=== PATIENT | female | born 1960 | race Caucasian/White ===

== ENCOUNTER 2018-06-22 17:23 | Inpatient (IN) | payer MEDICAID ==
[2018-06-21 21:20] VITALS: BP 168/58
[~2018-06-22] VITALS: Ht 160 cm; Wt 69.4 kg
[~2018-06-22 17:23] MED LIST: ASPI-611; BUSP5TAB3 PO; METF500T PO; MULT-1179 PO; RANI-320 PO
[2018-06-22] MEDS ORDERED: normal saline 1000ML IV soln IVB ONE (17:40)
[2018-06-22 17:42] LABS: BASOPHILS % (AUTO) 0.3 % (0-1); EOSINOPHILS % (AUTO) 0.7 % (0-6); HEMATOCRIT 43.1 % (35.0-45.0); HEMOGLOBIN 14.7 g/dl (12.0-16.0); LYMPHOCYTES # (AUTO) 1.3 X10'3 (1.1-4.8); LYMPHOCYTES % (AUTO) 19.7 % (21-51); MEAN CORPUSCULAR HEMOGLOBIN 30.1 PG (27.0-31.0); MEAN CORPUSCULAR VOLUME 88.5 FL (78-98); MEAN PLATELET VOLUME 9.8 FL (7.4-10.4); MONOCYTES # (AUTO) 0.4 X10'3 (0-0.9); MONOCYTES % (AUTO) 6.4 % (2-12); NEUTROPHILS # (AUTO) 4.7 X10'3 (1.8-7.7); NEUTROPHILS % (AUTO) 72.9 % (42-75); PLATELET COUNT 206 X10'3 (140-440); RED BLOOD COUNT 4.87 X10'6 (4.20-5.60); RED CELL DISTRIBUTION WIDTH 12.6 % (11.5-14.5); WHITE BLOOD COUNT 6.5 X10'3 (4.5-11.0)
[2018-06-22 17:52] LABS: INR 1.1 INR; PARTIAL THROMBOPLASTIN TIME 25 SECONDS (22-32)
[2018-06-22 18:01] LABS: ALANINE AMINOTRANSFERASE 37 U/L (12-78); ALBUMIN 2.8 G/DL (3.4-5.0); ALBUMIN/GLOBULIN RATIO 0.6 (1.1-1.5); ALKALINE PHOSPHATASE 81 IU/L (46-116); ANION GAP 6 (8-16); ASPARTATE AMINO TRANSFERASE 24 U/L (10-37); BILIRUBIN,TOTAL 0.5 MG/DL (0.1-1.0); BLOOD UREA NITROGEN 14 MG/DL (7-18); BUN/CREATININE RATIO 15.4 (6.6-38.0); CALCIUM 8.8 MG/DL (8.5-10.1); CHLORIDE 100 MMOL/L (99-107); CREATININE 0.91 MG/DL (0.40-0.90); ETHANOL < 0.010 GM/DL (0.0-0.010); POTASSIUM 4.2 MMOL/L (3.5-5.1); SODIUM 135 MMOL/L (135-145); TOTAL CARBON DIOXIDE 29.3 MMOL/L (24-32); TOTAL PROTEIN 7.2 G/DL (6.4-8.2); TROPONIN I 0.07 NG/ML (0.0-0.05); eGFR 64 ML/MIN
[2018-06-22 18:02] LABS: ACETAMINOPHEN < 2.0 UG/ML (10-30)
[2018-06-22 18:04] LABS: GLUCOSE 501 MG/DL (70-104)
[2018-06-22] MEDS ORDERED: insulin Lispro (HumaLOG) vial - multi-dose SQ STA (18:05)
[2018-06-22] MEDS ORDERED: aspirin 325mg tablet PO ONE (19:55)
[2018-06-22] MEDS ORDERED: ondansetron/PF 4mg/2ml inj IV PRN (20:05)
[2018-06-22] MEDS ORDERED: magnesium hydroxide 30ml (MOM) UD suspension PO PRN (20:05)
[2018-06-22] MEDS ORDERED: acetaminophen 325mg tablet PO PRN ×2 (20:05)
[2018-06-22] MEDS ORDERED: mag hydrox/Alum hydrox/simeth 30ml oral suspension PO PRN (20:05)
[2018-06-22] MEDS ORDERED: glucagon, human recombinant 1mg kit SUBCUT PRN (20:10)
[2018-06-22] MEDS ORDERED: dextrose 50%-water 50ml dispensing syringe IV PRN ×2 (20:10)
[2018-06-22] MEDS ORDERED: MESSAGE TO PHARMACY PO ONE (20:10)
[2018-06-22] MEDS ORDERED: dextrose ORAL solution 15 GM/59 ML bottle PO PRN ×2 (20:10)
[2018-06-22 20:19] LABS: MAGNESIUM 1.6 MG/DL (1.5-2.4)
[2018-06-22 20:28] LABS: ALBUMIN 2.6 G/DL (3.4-5.0); ANION GAP 6 (8-16); BLOOD UREA NITROGEN 13 MG/DL (7-18); BUN/CREATININE RATIO 15.3 (6.6-38.0); CALCIUM 8.8 MG/DL (8.5-10.1); CHLORIDE 104 MMOL/L (99-107); CREATININE 0.85 MG/DL (0.40-0.90); GLUCOSE 309 MG/DL (70-104); POTASSIUM 3.9 MMOL/L (3.5-5.1); SODIUM 140 MMOL/L (135-145); TOTAL CARBON DIOXIDE 29.7 MMOL/L (24-32); eGFR 69 ML/MIN
[2018-06-22] MEDS: magnesium 1gm/100ml D5W IVPB 100 ML IV SCH ×2 (22:15→23:23)
[2018-06-22] MEDS ORDERED: insulin glargine (Lantus) pen - multi-dose SQ ONE (22:19)
[2018-06-22] MEDS ORDERED: insulin Lispro (HumaLOG) vial - multi-dose SQ ONE (22:20)
[2018-06-22 22:30] VITALS: BP 152/52
[2018-06-22] MEDS: insulin glargine (Lantus) pen - multi-dose SQ SCH (22:42)
[2018-06-23] VITALS (7 sets, daily range): BP systolic 155–241; BP diastolic 45–65
[2018-06-23 05:56] LABS: BASOPHILS % (AUTO) 0.4 % (0-1); EOSINOPHILS # (AUTO) 0.1 X10'3 (0-0.9); EOSINOPHILS % (AUTO) 1.2 % (0-6); HEMATOCRIT 41.6 % (35.0-45.0); HEMOGLOBIN 14.4 g/dl (12.0-16.0); LYMPHOCYTES # (AUTO) 1.4 X10'3 (1.1-4.8); LYMPHOCYTES % (AUTO) 21.9 % (21-51); MEAN CORPUSCULAR HEMOGLOBIN 30.3 PG (27.0-31.0); MEAN CORPUSCULAR HGB CONC 34.5 % (33.0-36.5); MEAN PLATELET VOLUME 10.1 FL (7.4-10.4); MONOCYTES # (AUTO) 0.4 X10'3 (0-0.9); NEUTROPHILS # (AUTO) 4.3 X10'3 (1.8-7.7); NEUTROPHILS % (AUTO) 69.5 % (42-75); PLATELET COUNT 195 X10'3 (140-440); RED BLOOD COUNT 4.73 X10'6 (4.20-5.60); RED CELL DISTRIBUTION WIDTH 12.6 % (11.5-14.5); WHITE BLOOD COUNT 6.2 X10'3 (4.5-11.0)
[2018-06-23 06:50] LABS: ALANINE AMINOTRANSFERASE 31 U/L (12-78); ALBUMIN 2.5 G/DL (3.4-5.0); ALBUMIN/GLOBULIN RATIO 0.6 (1.1-1.5); ALKALINE PHOSPHATASE 70 IU/L (46-116); ANION GAP 6 (8-16); ASPARTATE AMINO TRANSFERASE 21 U/L (10-37); BILIRUBIN,TOTAL 0.6 MG/DL (0.1-1.0); BLOOD UREA NITROGEN 8 MG/DL (7-18); BUN/CREATININE RATIO 11.9 (6.6-38.0); CALCIUM 8.3 MG/DL (8.5-10.1); CHLORIDE 104 MMOL/L (99-107); CHOL/HDL RATIO 2.9 (0.00-4.99); CHOLESTEROL 148 MG/DL (0-200); CREATININE 0.67 MG/DL (0.40-0.90); GLUCOSE 260 MG/DL (70-104); HDL CHOLESTEROL 51 MG/DL (35-60); LDL CHOLESTEROL 87 MG/DL (50-100); POTASSIUM 3.9 MMOL/L (3.5-5.1); SODIUM 137 MMOL/L (135-145); TOTAL CARBON DIOXIDE 26.6 MMOL/L (24-32); TOTAL PROTEIN 6.5 G/DL (6.4-8.2); TRIGLYCERIDES 90 MG/DL (20-135); eGFR > 90 ML/MIN
[2018-06-23 07:58] LABS: URINE AMPHETAMINE SCREEN POSITIVE (Neg); URINE BARBITUATE SCREEN NEGATIVE (Neg); URINE BENZODIAZEPINES SCREEN NEGATIVE (Neg); URINE CANNABINOID SCREEN NEGATIVE (Neg); URINE COCAINE SCREEN NEGATIVE (Neg); URINE METHADONE SCREEN NEGATIVE (Neg); URINE OPIATE SCREEN NEGATIVE (Neg); URINE PHENCYCLIDINE SCREEN NEGATIVE (Neg)
[2018-06-23] MEDS: aspirin 325mg tablet PO SCH (08:56)
[2018-06-23] MEDS ORDERED: LORazepam 2 mg/ml vial IV ONE (11:50)
[2018-06-23] MEDS: atorvastatin 20mg tablet PO SCH (19:03)
[2018-06-23] MEDS: insulin glargine (Lantus) pen - multi-dose SQ SCH (21:17)
[2018-06-24] VITALS (7 sets, daily range): BP systolic 135–202; BP diastolic 52–65
[2018-06-24] MEDS: enalaprilat dihydrate 2.5mg/2ml vial IV SCH ×2 (04:00)
[2018-06-24 06:11] LABS: BASOPHILS % (AUTO) 0 % (0-1); EOSINOPHILS % (AUTO) 0.5 % (0-6); HEMOGLOBIN 14.8 g/dl (12.0-16.0); LYMPHOCYTES # (AUTO) 1.3 X10'3 (1.1-4.8); LYMPHOCYTES % (AUTO) 18.2 % (21-51); MEAN CORPUSCULAR HEMOGLOBIN 29.8 PG (27.0-31.0); MEAN CORPUSCULAR HGB CONC 33.6 % (33.0-36.5); MEAN CORPUSCULAR VOLUME 88.8 FL (78-98); MEAN PLATELET VOLUME 10.1 FL (7.4-10.4); MONOCYTES # (AUTO) 0.4 X10'3 (0-0.9); MONOCYTES % (AUTO) 6.1 % (2-12); NEUTROPHILS # (AUTO) 5.3 X10'3 (1.8-7.7); NEUTROPHILS % (AUTO) 75.2 % (42-75); PLATELET COUNT 207 X10'3 (140-440); RED BLOOD COUNT 4.96 X10'6 (4.20-5.60); RED CELL DISTRIBUTION WIDTH 12.3 % (11.5-14.5); WHITE BLOOD COUNT 7.1 X10'3 (4.5-11.0)
[2018-06-24 06:28] LABS: ALBUMIN 2.4 G/DL (3.4-5.0); ANION GAP 9 (8-16); BLOOD UREA NITROGEN 9 MG/DL (7-18); BUN/CREATININE RATIO 14.8 (6.6-38.0); CALCIUM 8.7 MG/DL (8.5-10.1); CHLORIDE 102 MMOL/L (99-107); CREATININE 0.61 MG/DL (0.40-0.90); GLUCOSE 244 MG/DL (70-104); POTASSIUM 3.8 MMOL/L (3.5-5.1); SODIUM 137 MMOL/L (135-145); eGFR > 90 ML/MIN
[2018-06-24] MEDS: atorvastatin 20mg tablet PO SCH (08:17)
[2018-06-24] MEDS: lisinopril 20mg tablet PO SCH (08:17)
[2018-06-24] MEDS: insulin Lispro (HumaLOG) vial - multi-dose SQ SCH ×3 (08:34→19:24)
[2018-06-24] MEDS: aspirin 325mg tablet PO SCH (08:35)
[2018-06-24] MEDS ORDERED: enalaprilat dihydrate 2.5mg/2ml vial IV ONE (16:30)
[2018-06-24] MEDS: famotidine 20mg tablet PO SCH (19:19)
[2018-06-24] MEDS: busPIRone 5mg tablet PO SCH (19:19)
[2018-06-24] MEDS: insulin glargine (Lantus) pen - multi-dose SQ SCH (21:41)
[2018-06-25] VITALS (7 sets, daily range): BP systolic 126–177; BP diastolic 45–75
[2018-06-25 06:48] LABS: BASOPHILS % (AUTO) 0.3 % (0-1); EOSINOPHILS # (AUTO) 0.1 X10'3 (0-0.9); EOSINOPHILS % (AUTO) 0.9 % (0-6); HEMATOCRIT 43.2 % (35.0-45.0); HEMOGLOBIN 14.9 g/dl (12.0-16.0); LYMPHOCYTES # (AUTO) 1.5 X10'3 (1.1-4.8); LYMPHOCYTES % (AUTO) 18.5 % (21-51); MEAN CORPUSCULAR HEMOGLOBIN 30.1 PG (27.0-31.0); MEAN CORPUSCULAR HGB CONC 34.3 % (33.0-36.5); MEAN CORPUSCULAR VOLUME 87.6 FL (78-98); MEAN PLATELET VOLUME 10.4 FL (7.4-10.4); MONOCYTES # (AUTO) 0.7 X10'3 (0-0.9); MONOCYTES % (AUTO) 8.8 % (2-12); NEUTROPHILS # (AUTO) 5.7 X10'3 (1.8-7.7); NEUTROPHILS % (AUTO) 71.5 % (42-75); PLATELET COUNT 184 X10'3 (140-440); RED BLOOD COUNT 4.94 X10'6 (4.20-5.60); RED CELL DISTRIBUTION WIDTH 12.4 % (11.5-14.5)
[2018-06-25 06:59] LABS: ALBUMIN 2.4 G/DL (3.4-5.0); ANION GAP 8 (8-16); BLOOD UREA NITROGEN 9 MG/DL (7-18); BUN/CREATININE RATIO 12.9 (6.6-38.0); CALCIUM 8.8 MG/DL (8.5-10.1); CHLORIDE 101 MMOL/L (99-107); GLUCOSE 221 MG/DL (70-104); SODIUM 135 MMOL/L (135-145); TOTAL CARBON DIOXIDE 25.6 MMOL/L (24-32); eGFR 87 ML/MIN
[2018-06-25] MEDS: busPIRone 5mg tablet PO SCH ×2 (07:32→19:24)
[2018-06-25] MEDS: atorvastatin 20mg tablet PO SCH (07:33)
[2018-06-25] MEDS: famotidine 20mg tablet PO SCH ×2 (07:33→19:24)
[2018-06-25] MEDS: lisinopril 20mg tablet PO SCH (07:33)
[2018-06-25] MEDS: aspirin 325mg tablet PO SCH (07:33)
[2018-06-25] MEDS: insulin Lispro (HumaLOG) vial - multi-dose SQ SCH ×4 (08:13→21:10)
[2018-06-25] MEDS: CefTRIAXone/D5W-Rocephin 1gm 50 ML IV SCH (17:34)
[2018-06-25] MEDS: insulin glargine (Lantus) pen - multi-dose SQ SCH (21:06)
[2018-06-26 03:00] VITALS: BP 149/56
[2018-06-26 05:34] LABS: BASOPHILS % (AUTO) 0.3 % (0-1); EOSINOPHILS # (AUTO) 0.1 X10'3 (0-0.9); EOSINOPHILS % (AUTO) 1.6 % (0-6); HEMATOCRIT 41.9 % (35.0-45.0); HEMOGLOBIN 14.3 g/dl (12.0-16.0); LYMPHOCYTES # (AUTO) 1.9 X10'3 (1.1-4.8); LYMPHOCYTES % (AUTO) 23.9 % (21-51); MEAN CORPUSCULAR HEMOGLOBIN 30.3 PG (27.0-31.0); MEAN CORPUSCULAR VOLUME 89.1 FL (78-98); MONOCYTES # (AUTO) 0.6 X10'3 (0-0.9); MONOCYTES % (AUTO) 7.3 % (2-12); NEUTROPHILS # (AUTO) 5.4 X10'3 (1.8-7.7); NEUTROPHILS % (AUTO) 66.9 % (42-75); PLATELET COUNT 185 X10'3 (140-440); RED BLOOD COUNT 4.71 X10'6 (4.20-5.60); RED CELL DISTRIBUTION WIDTH 12.2 % (11.5-14.5)
[2018-06-26 05:50] LABS: ALBUMIN 2.2 G/DL (3.4-5.0); ANION GAP 9 (8-16); BLOOD UREA NITROGEN 9 MG/DL (7-18); BUN/CREATININE RATIO 14.3 (6.6-38.0); CALCIUM 8.7 MG/DL (8.5-10.1); CHLORIDE 103 MMOL/L (99-107); CREATININE 0.63 MG/DL (0.40-0.90); GLUCOSE 146 MG/DL (70-104); SODIUM 137 MMOL/L (135-145); TOTAL CARBON DIOXIDE 24.8 MMOL/L (24-32); eGFR > 90 ML/MIN
[2018-06-26 06:00] VITALS: BP 157/55
[2018-06-26] MEDS: aspirin 325mg tablet PO SCH (08:29)
[2018-06-26] MEDS: atorvastatin 20mg tablet PO SCH (08:29)
[2018-06-26] MEDS: busPIRone 5mg tablet PO SCH ×2 (08:29→19:34)
[2018-06-26] MEDS: lisinopril 20mg tablet PO SCH (08:30)
[2018-06-26] MEDS: famotidine 20mg tablet PO SCH ×2 (08:30→19:34)
[2018-06-26] MEDS: CefTRIAXone/D5W-Rocephin 1gm 50 ML IV SCH (08:30)
[2018-06-26] MEDS: insulin Lispro (HumaLOG) vial - multi-dose SQ SCH ×3 (08:42→19:34)
[2018-06-26 11:00] VITALS: BP 125/54
[2018-06-26 15:00] VITALS: BP 142/70
[2018-06-26 19:00] VITALS: BP 135/52
[2018-06-26] MEDS: lactobacillus rhamnosus 10,000 MMU CELLS/CAPSULE PO SCH (19:34)
[2018-06-26] MEDS: insulin glargine (Lantus) pen - multi-dose SQ SCH (21:31)
[2018-06-27 03:00] VITALS: BP 114/49
[2018-06-27 05:21] LABS: BASOPHILS % (AUTO) 0.4 % (0-1); EOSINOPHILS # (AUTO) 0.1 X10'3 (0-0.9); EOSINOPHILS % (AUTO) 0.7 % (0-6); HEMATOCRIT 42.3 % (35.0-45.0); HEMOGLOBIN 14.1 g/dl (12.0-16.0); LYMPHOCYTES # (AUTO) 1.6 X10'3 (1.1-4.8); LYMPHOCYTES % (AUTO) 20.4 % (21-51); MEAN CORPUSCULAR HEMOGLOBIN 29.8 PG (27.0-31.0); MEAN CORPUSCULAR HGB CONC 33.5 % (33.0-36.5); MEAN CORPUSCULAR VOLUME 89.2 FL (78-98); MEAN PLATELET VOLUME 10.2 FL (7.4-10.4); MONOCYTES # (AUTO) 0.7 X10'3 (0-0.9); MONOCYTES % (AUTO) 9.3 % (2-12); NEUTROPHILS # (AUTO) 5.5 X10'3 (1.8-7.7); NEUTROPHILS % (AUTO) 69.2 % (42-75); PLATELET COUNT 201 X10'3 (140-440); RED BLOOD COUNT 4.74 X10'6 (4.20-5.60); RED CELL DISTRIBUTION WIDTH 12.4 % (11.5-14.5); WHITE BLOOD COUNT 7.9 X10'3 (4.5-11.0)
[2018-06-27 05:35] LABS: ALBUMIN 2.3 G/DL (3.4-5.0); ANION GAP 8 (8-16); BLOOD UREA NITROGEN 15 MG/DL (7-18); BUN/CREATININE RATIO 20.5 (6.6-38.0); CALCIUM 8.7 MG/DL (8.5-10.1); CHLORIDE 102 MMOL/L (99-107); CREATININE 0.73 MG/DL (0.40-0.90); GLUCOSE 143 MG/DL (70-104); POTASSIUM 4.2 MMOL/L (3.5-5.1); SODIUM 137 MMOL/L (135-145); TOTAL CARBON DIOXIDE 27.2 MMOL/L (24-32); eGFR 82 ML/MIN
[2018-06-27 06:00] VITALS: BP 151/58
[2018-06-27] MEDS: famotidine 20mg tablet PO SCH ×2 (08:05→20:44)
[2018-06-27] MEDS: atorvastatin 20mg tablet PO SCH (08:05)
[2018-06-27] MEDS: lactobacillus rhamnosus 10,000 MMU CELLS/CAPSULE PO SCH ×2 (08:05→20:45)
[2018-06-27] MEDS: aspirin 325mg tablet PO SCH (08:05)
[2018-06-27] MEDS: busPIRone 5mg tablet PO SCH ×2 (08:05→20:44)
[2018-06-27] MEDS: lisinopril 20mg tablet PO SCH (08:05)
[2018-06-27] MEDS: CefTRIAXone/D5W-Rocephin 1gm 50 ML IV SCH (08:05)
[2018-06-27] MEDS: insulin Lispro (HumaLOG) vial - multi-dose SQ SCH ×3 (08:10→18:59)
[2018-06-27] MEDS: HYDROchlorothiazide 12.5mg capsule PO SCH (09:00)
[2018-06-27 11:00] VITALS: BP 155/54
[2018-06-27 15:00] VITALS: BP 147/54
[2018-06-27 18:00] VITALS: BP 163/51
[2018-06-27] MEDS: insulin glargine (Lantus) pen - multi-dose SQ SCH (21:28)
[2018-06-27 22:00] VITALS: BP 146/62
[2018-06-28 02:00] VITALS: BP 133/59
[2018-06-28 06:00] VITALS: BP 139/64
[2018-06-28] MEDS: lactobacillus rhamnosus 10,000 MMU CELLS/CAPSULE PO SCH ×2 (07:42→19:05)
[2018-06-28] MEDS: busPIRone 5mg tablet PO SCH ×2 (07:42→19:05)
[2018-06-28] MEDS: famotidine 20mg tablet PO SCH ×2 (07:43→19:05)
[2018-06-28] MEDS: lisinopril 20mg tablet PO SCH (07:43)
[2018-06-28] MEDS: atorvastatin 20mg tablet PO SCH (07:43)
[2018-06-28] MEDS: HYDROchlorothiazide 12.5mg capsule PO SCH (07:43)
[2018-06-28] MEDS: aspirin 325mg tablet PO SCH (07:43)
[2018-06-28] MEDS ORDERED: CefTRIAXone/D5W-Rocephin 1gm 50 ML IV SCH (08:30)
[2018-06-28] MEDS: insulin Lispro (HumaLOG) vial - multi-dose SQ SCH ×2 (08:31→14:30)
[2018-06-28 11:00] VITALS: BP 126/39
[2018-06-28 11:49] LABS: CLARITY,URINE CLEAR (Clear); COLOR,URINE YELLOW (Yellow); GLUCOSE, URINE >=1000 mg/dl (Neg); KETONES,URINE NEGATIVE (Neg); LEUKOCYTE ESTERASE ,URINE NEGATIVE (Neg); NITRITES, URINE NEGATIVE (Neg); OCCULT BLOOD,URINE NEGATIVE (Neg); PROTEIN,URINE NEGATIVE (Neg); UROBILINOGEN,URINE 0.2 E.U/dL (0.2-1.0)
[2018-06-28 11:52] LABS: UA COLLECTION TYPE CLN CATCH MIDSTREAM
[2018-06-28 12:08] LABS: BACTERIA,URINE NONE SEEN /HPF (Neg); RBC,URINE NONE SEEN /HPF (0-2); SQUAMOUS EPITHELIAL CELL,UR FEW /LPF (FEW); WBC,URINE NONE SEEN /HPF (0-4)
[2018-06-28 15:00] VITALS: BP 135/73
[2018-06-28 19:00] VITALS: BP 137/43
[2018-06-28] MEDS: insulin glargine (Lantus) pen - multi-dose SQ SCH (21:15)
[2018-06-28 23:00] VITALS: BP 146/56
[2018-06-29 03:00] VITALS: BP 117/63
[2018-06-29 06:00] VITALS: BP 134/45
[2018-06-29 06:01] LABS: BASOPHILS % (AUTO) 0.4 % (0-1); EOSINOPHILS # (AUTO) 0.1 X10'3 (0-0.9); EOSINOPHILS % (AUTO) 1.1 % (0-6); HEMATOCRIT 41.4 % (35.0-45.0); LYMPHOCYTES # (AUTO) 1.5 X10'3 (1.1-4.8); LYMPHOCYTES % (AUTO) 23.4 % (21-51); MEAN CORPUSCULAR HEMOGLOBIN 29.9 PG (27.0-31.0); MEAN CORPUSCULAR HGB CONC 33.9 % (33.0-36.5); MEAN CORPUSCULAR VOLUME 88.1 FL (78-98); MEAN PLATELET VOLUME 10.2 FL (7.4-10.4); MONOCYTES # (AUTO) 0.5 X10'3 (0-0.9); MONOCYTES % (AUTO) 8.1 % (2-12); NEUTROPHILS # (AUTO) 4.4 X10'3 (1.8-7.7); PLATELET COUNT 235 X10'3 (140-440); RED BLOOD COUNT 4.69 X10'6 (4.20-5.60); RED CELL DISTRIBUTION WIDTH 12.2 % (11.5-14.5); WHITE BLOOD COUNT 6.5 X10'3 (4.5-11.0)
[2018-06-29 06:20] LABS: ALBUMIN 2.3 G/DL (3.4-5.0); ANION GAP 10 (8-16); BLOOD UREA NITROGEN 19 MG/DL (7-18); BUN/CREATININE RATIO 27.5 (6.6-38.0); CALCIUM 9.1 MG/DL (8.5-10.1); CHLORIDE 101 MMOL/L (99-107); CREATININE 0.69 MG/DL (0.40-0.90); GLUCOSE 229 MG/DL (70-104); POTASSIUM 4.3 MMOL/L (3.5-5.1); SODIUM 137 MMOL/L (135-145); TOTAL CARBON DIOXIDE 26.2 MMOL/L (24-32); eGFR 88 ML/MIN
[2018-06-29] MEDS ORDERED: cefTRIAXone 1g/NS 100ml IVPB 100 ML IV SCH (08:36)
[2018-06-29] MEDS: HYDROchlorothiazide 12.5mg capsule PO SCH (08:54)
[2018-06-29] MEDS: lisinopril 20mg tablet PO SCH (08:54)
[2018-06-29] MEDS: lactobacillus rhamnosus 10,000 MMU CELLS/CAPSULE PO SCH ×2 (08:54→19:10)
[2018-06-29] MEDS: famotidine 20mg tablet PO SCH ×2 (08:54→19:10)
[2018-06-29] MEDS: busPIRone 5mg tablet PO SCH ×2 (08:54→19:10)
[2018-06-29] MEDS: atorvastatin 20mg tablet PO SCH (08:54)
[2018-06-29] MEDS: aspirin 325mg tablet PO SCH (08:54)
[2018-06-29] MEDS: insulin Lispro (HumaLOG) vial - multi-dose SQ SCH ×3 (10:01→19:14)
[2018-06-29 11:00] VITALS: BP 139/62
[2018-06-29 15:00] VITALS: BP 141/53
[2018-06-29 19:00] VITALS: BP 133/50
[2018-06-29] MEDS: insulin glargine (Lantus) pen - multi-dose SQ SCH (21:07)
[2018-06-29 23:00] VITALS: BP 133/56
[2018-06-30 03:00] VITALS: BP 134/57
[2018-06-30] MEDS: busPIRone 5mg tablet PO SCH ×2 (08:00→19:20)
[2018-06-30] MEDS: atorvastatin 20mg tablet PO SCH (08:23)
[2018-06-30] MEDS: aspirin 325mg tablet PO SCH (08:23)
[2018-06-30] MEDS: HYDROchlorothiazide 12.5mg capsule PO SCH (08:23)
[2018-06-30] MEDS: lisinopril 20mg tablet PO SCH (08:23)
[2018-06-30] MEDS: famotidine 20mg tablet PO SCH ×2 (08:23→19:20)
[2018-06-30] MEDS: lactobacillus rhamnosus 10,000 MMU CELLS/CAPSULE PO SCH ×2 (08:23→19:20)
[2018-06-30] MEDS: insulin Lispro (HumaLOG) vial - multi-dose SQ SCH ×2 (08:49→14:28)
[2018-06-30 09:41] VITALS: BP 133/66
[2018-06-30 11:00] VITALS: BP 119/64
[2018-06-30 15:00] VITALS: BP 133/58
[2018-06-30 19:00] VITALS: BP 136/54
[2018-06-30] MEDS: insulin glargine (Lantus) pen - multi-dose SQ SCH (21:08)
[2018-06-30 23:00] VITALS: BP 108/52
[2018-07-01 03:02] VITALS: BP 119/52
[2018-07-01 07:00] VITALS: BP 133/54
[2018-07-01] MEDS: insulin Lispro (HumaLOG) vial - multi-dose SQ SCH ×3 (08:32→20:32)
[2018-07-01] MEDS: busPIRone 5mg tablet PO SCH ×2 (08:33→20:29)
[2018-07-01] MEDS: HYDROchlorothiazide 12.5mg capsule PO SCH (08:33)
[2018-07-01] MEDS: atorvastatin 20mg tablet PO SCH (08:33)
[2018-07-01] MEDS: lisinopril 20mg tablet PO SCH (08:33)
[2018-07-01] MEDS: lactobacillus rhamnosus 10,000 MMU CELLS/CAPSULE PO SCH ×2 (08:33→20:29)
[2018-07-01] MEDS: aspirin 325mg tablet PO SCH (08:33)
[2018-07-01] MEDS: famotidine 20mg tablet PO SCH ×2 (08:33→20:29)
[2018-07-01 11:00] VITALS: BP 134/46
[2018-07-01 17:00] VITALS: BP 136/39
[2018-07-01 19:00] VITALS: BP 129/49
[2018-07-01] MEDS: insulin glargine (Lantus) pen - multi-dose SQ SCH (20:34)
[2018-07-01 23:00] VITALS: BP 138/47
[2018-07-02 02:00] VITALS: BP 137/61
[2018-07-02 06:55] VITALS: BP 179/67
[2018-07-02] MEDS: famotidine 20mg tablet PO SCH (07:37)
[2018-07-02] MEDS: lisinopril 20mg tablet PO SCH (07:37)
[2018-07-02] MEDS: lactobacillus rhamnosus 10,000 MMU CELLS/CAPSULE PO SCH (07:37)
[2018-07-02] MEDS: atorvastatin 20mg tablet PO SCH (07:37)
[2018-07-02] MEDS: aspirin 325mg tablet PO SCH (07:37)
[2018-07-02] MEDS: busPIRone 5mg tablet PO SCH (07:37)
[2018-07-02] MEDS: HYDROchlorothiazide 12.5mg capsule PO SCH (07:37)
[2018-07-02] MEDS: insulin Lispro (HumaLOG) vial - multi-dose SQ SCH (08:49)
[2018-07-02] MEDS ORDERED: GLYB2.5T4 PO (10:58)
[2018-07-02] MEDS ORDERED: HYDR12.5 PO (10:58)
[2018-07-02] MEDS ORDERED: LISI-600 PO (10:58)
[2018-07-02] MEDS ORDERED: ATOR20TA66 PO (10:58)
[2018-07-02] MEDS ORDERED: ASPI-1 PO (10:58)
[2018-07-02 11:00] VITALS: BP_SYST 120; BP_SYST 179; BP_DIAS 48; BP_DIAS 67
== END 2018-07-02 14:03 | disposition home or self-care (01) | DRG 45 ==
LOC: ER 17:24 → ED HOLD 20:05 → PCU 3S 21:25
PROVIDERS: ADMIT Internal Medicine; ATTEND Family Medicine
DX: I63.9 Cerebral infarction, unspecified (principal); I44.2 Atrioventricular block, complete; E11.65 Type 2 diabetes mellitus with hyperglycemia; R00.1 Bradycardia, unspecified; E78.5 Hyperlipidemia, unspecified; I10 Essential (primary) hypertension; F32.9 Major depressive disorder, single episode, unspecified; F15.10 Other stimulant abuse, uncomplicated; F17.200 Nicotine dependence, unspecified, uncomplicated; F12.90 Cannabis use, unspecified, uncomplicated; K21.9 Gastro-esophageal reflux disease without esophagitis; F41.9 Anxiety disorder, unspecified; Z88.1 Allergy status to other antibiotic agents; Z91.040 Latex allergy status; Z59.0 Homelessness; Z91.14 Patient's other noncompliance with medication regimen; Z91.19 Patient's noncompliance with other medical treatment and regimen
CPT/HCPCS: 36415; 70450; 70544; 70551; 71045; 80048; 80053; 80061; 80305; 80320; 80329; 81001; 82948; 83036; 83605; 83735; 84145; 84443; 84484; 85025; 85610; 85730; 87040; 87070; 93005; 93306; 93880; 96360; 96372; 97110; 97112; 97116; 97162; 97530; 99285; A4315; A6213; J0696; J1815; J2060; J7030